=== PATIENT | male | born 1975 | race Caucasian/White ===

== ENCOUNTER → 2022-08-18 08:34 | Outpatient (CLI) | payer OTHER, SELFPAY ==
--- NOTE | 2022-08-18 | DI.RAD.S_ITS ---
PROCEDURE: XR LUMBAR SPINE 2-3V INDICATIONS: Spondylosis without myelopathy or radiculopathy TECHNIQUE: 2 views of the lumbar spine were acquired. COMPARISON: [facility], CR, XR LUMBAR SPINE 2 OR 3 VIEWS, 10/11/2018, 8:55. FINDINGS: Bones: 5 [id number] vertebrae are present. Minimal right convexity curvature centered at L2. 2 millimeters retrolisthesis L2 on L3. No vertebral body compression fractures. No suspicious bony lesions. Mild multilevel degenerative changes with disc height loss, endplate spurring, and facet arthropathy. Soft tissues: Overlying bowel gas pattern is normal. No suspicious soft tissue calcifications. IMPRESSION: Mild degenerative changes of the lumbar spine, not significantly changed in appearance radiographically. Dictated by: Medardo Russo M.D. on 08/18/2022 at 10:10 Approved by: Medardo Russo M.D. on 08/18/2022 at 10:14
== END ==
PROVIDERS: PCP Physician Assistant; Referring Provider Internal Medicine Cardiovascular Disease; Visit Provider Internal Medicine Cardiovascular Disease
DX: M54.50 Low back pain, unspecified (principal); M47.816 Spondylosis without myelopathy or radiculopathy, lumbar region
CPT/HCPCS: 72100